=== PATIENT | male | born 1960 | race Two or more races ===

== ENCOUNTER → 2024-08-05 | Outpatient (CLI) | payer BC, SELFPAY ==
--- NOTE | 2024-08-05 | XR_ITS ---
Examination: Bilateral knees 2 views Right lateral knee left lateral knee 2 views TECHNIQUE: Bilateral AP knees standing single view Bilateral PA knees standing 30 degrees flexion single view Right lateral knee left lateral knee 2 views total 4 views Exam date and time: August 05, 2024 1525 hours INDICATIONS: Bilateral knee pain on the left side beginning one month ago on the right side beginning one year ago FINDINGS: Moderate osteopenia Severe narrowing [id number] medial joint space right knee Moderate osteoarthritis right patellofemoral joint Moderate to advanced narrowing medial joint space left knee Moderate osteoarthritis left patellofemoral joint Posterior left joint ossified bodies, the largest 15 mm IMPRESSION: Severe narrowing [id number] medial joint space right knee Moderate to advanced medial joint space left knee
== END | disposition home or self-care (01) ==
PROVIDERS: PCP Family Medicine; Referring Provider Family Medicine; Visit Provider Family Medicine
DX: M25.862 Other specified joint disorders, left knee (principal); M25.861 Other specified joint disorders, right knee
CPT/HCPCS: 73562

== ENCOUNTER 2024-08-15 08:08 | Outpatient (AMB) | payer BC, SELFPAY ==
--- NOTE | 2024-08-15 08:25 | ORTHONT_ITS ---
Vital signs 08/15/24 08:34 Height 1.88 m Height Method Stated Weight 134.859 kg Weight Measurement Method Standing Scale BMI 38.1 BP 152/92 H Blood Pressure Source Automatic Cuff Blood Pressure Location Left Upper Arm Position Sitting Respiration 19 Pulse 102 H Pulse Source Monitor Temp 97.8 F Temp Source Temporal Artery Scan Pulse Oximetry (%) 94 L Oxygen Delivery Method Room Air Med/Allergies Allergies & Medications Allergies methylprednisolone Allergy (Mild, Verified 08/15/24 08:35) Hives Medication Reconciliation acetaminophen 500 mg tablet (Tylenol Extra Strength) 500 mg PO QID PRN fever or pain #30 tabs 10/29/20 [Rx Confirmed 08/15/24] azithromycin 250 mg tablet See Rx Instructions PO .COMPLEX #6 tabs 10/29/20 [Rx Confirmed 08/15/24] Exam Exam Patient is in no acute distress and is cooperative with the examination today. Breathing is nonlabored. In no respiratory distress. Bilateral extremities were evaluated and demonstrates sensation intact to light touch. Palpable pedal pulses are present. No significant edema is present. Bilateral hips were examined. The patient has no pain with log roll of the hips. Internal rotation to 30 degrees and external rotation to 30 degrees is painless. Negative FADIR. The left knee was examined. The left knee is in varus alignment. Range of motion from 0-115 degrees. Knee is stable to varus and valgus as well as AP translation with <5mm. Patient has a negative McMurrays. There is no pain with patellofemoral compression and no crepitus noted. The knee is tender to palpation medially. The right knee was also examined. The right knee is in varus alignment. Range of motion from 0-120 degrees. Knee is stable to varus and valgus as well as AP translation with <5mm. Patient has a negative McMurrays. There is no pain with patellofemoral compression and no crepitus noted. The knee is tender to palpation medially. Patient has bilateral knee x-rays that demonstrate severe joint space narrowing medially and varus deformity Assessment and Plan Problem List (1) Degenerative arthritis of knee, bilateral: Status: Acute Plan: Patient is a 63-year-old male with bilateral knee pain and bilateral knee arthritis. We discussed nonoperative options including injections and anti- inflammatories. He is on oral diclofenac and we thus discussed that we can try bilateral knee injections. He had a funny reaction to methylprednisolone that was injected in his foot before and thus I would like to start 1 at a time. I discussed with him that if he gets a rash again that I would recommend an antihistamine. It went away completely with the last time and he had no systemic symptoms except for the rash for. Plan Recommend knee cortisone injection as patient would like to proceed with conservative treatment at this time. The risks and benefits of the procedure were reviewed with the patient and patient gave verbal consent to continue with the procedure. Procedure: performed by Dr. Osullivan Using sterile technique the left knee was thoroughly prepped with alcohol, and approximately 1 cc of Kenalog 40 mg/mL and 4 cc of 1% lidocaine was injected without resistance into the medial tibial femoral joint space. The patient tolerated the procedure. Office Procedures GNS Level of Care Nursing/Assessment Patient Status: Initial/New Patient Nursing Assessment/Reassesment: Medication Reconciliation, Update PMH in EMR and Vital Signs Coordination of Care: Complex Care and Chronic Disease 1-5, Education Complex Pt/Fam, Consent,records obtained, informed consent, 1 Ins Authorization, Results/Orders obtained and Staff clarify orders Special Needs: Language special needs New Patient Charge New Patient Point Assignment: 1109 New Patient Point Charge: SENIOR DOT NET DEVELOPER Level 3 ([id number]) Surgical Proc/IM SQ injection Major Surgical Procedure: Yes (KNEE INJECTION ) Medication Given Medication Given Medication Given: Yes Documented Dose Given: 4 Route: Infiitration Medication Given Medication Given Medication Given: Yes Documented Dose Given: 1 Route: Infiitration Office Meds Xylocaine 10 mg/mL (1 %) injection solution Performing Provider: Jon Osullivan MD Performing Location: [facility] Administered by: Jon Osullivan MD on 08/15/24 09:10 Dose Route Admin Location Dispensed Lot Number Expiration Date [facility] Tile Designer 40 mL Infiltration 40 mL [id number] 11/06/27 81421-157-90 [facility] triamcinolone acetonide 40 mg/mL suspension for injection Performing Provider: Jon Osullivan MD Performing Location: [facility] Administered by: Jon Osullivan MD on 08/15/24 09:10 Dose Route Admin Location Dispensed Lot Number Expiration Date [facility] Tile Designer 80 mg intra-articular 2 mL [id number] 12/05/25 7717-4380-81 [facility] PARENTER[facility] [place] Intake Visit Data Collection New Patient or Established: New Patient (never been to [facility]) Reason for Visit:: BL KNEE PAIN Seen by Clinical Staff ONLY (RN/MA): No Jewelry Sales Representative Required: Yes PCP or OBGYN visit in last 3 months: Yes Hx Now: No Do You Feel Safe at Home: Yes Authorities Contacted: N/A Questionairres Past Medical History Past Medical History Have you ever been diagnosed with any of the following: Cardiology Problems Congestive Heart Failure: No Respiratory Problems Chronic Obstructive Pulmonary Disease (COPD): No Genital/Urinary Problems Renal Disease: No Endocrine Problems Diabetes Mellitus Type 1: No Diabetes Mellitus Type 2: No Subjective Visit Visit for: new patient and knee Immunization / Flu Flu Vaccine in the Last 12 Months: Yes Flu Vaccine Exclusion Criteria: Already Received History of Present Illness Chief complaint: Bilateral knee pain Patient is a pleasant 63-year-old male with bilateral knee pain worse on the left. This been ongoing for approximately a year. The left is worse than the right and the pain is primarily in the medial aspect. He has tried oral diclofenac. He previously had a injection in his foot and had a rash. It went away with oral Benadryl. We discussed that we resume a similar type medication. We discussed the risks and benefits and he would like to try injection. We recommended an antihistamine should he get a rash again Pain Pain level (0-10): 10 Pain duration: ALL DAY Pain location: inside (medial) Pain quality: aching and burning Pain timing: night, increases with activity and stairs Associated signs & symptoms: none Ambulatory data Ambulatory device: none Treatments Improvement with previous injections: No Improvement with PT: No Improvement with NSAIDS: no Review of Systems Review of Systems: All systems negative unless otherwise noted in HPI.
[2024-08-15 08:34] VITALS: BP 152/92; PULSE 102; RESP 19; TEMP 36.6; O2SAT 94; BMI 38.1
== END 2024-08-15 08:38 | disposition home or self-care (01) ==
LOC: HODSRG 08:08
PROVIDERS: PCP Family Medicine; Referring Provider Family Medicine; Supervising Provider Orthopaedic Surgery Adult Reconstructive Orthopaedic Surgery; Visit Provider Orthopaedic Surgery Adult Reconstructive Orthopaedic Surgery
DX: M17.0 Bilateral primary osteoarthritis of knee (principal); M25.562 Pain in left knee; M25.561 Pain in right knee
CPT/HCPCS: 20610; 99203; J3301; J3490; G0463

== ENCOUNTER 2024-10-10 12:57 | Outpatient (AMB) | payer BC, SELFPAY ==
[2024-10-10 13:11] VITALS: BP 142/89; PULSE 80; RESP 18; TEMP 36.5; O2SAT 92; BMI 37.5
--- NOTE | 2024-10-10 13:11 | PD.ORTHCLVIS ---
Vital signs 10/10/24 13:11 Height 1.88 m Height Method Stated Weight 132.931 kg Weight Measurement Method Standing Scale BMI 37.5 BP 142/89 H Blood Pressure Source Automatic Cuff Blood Pressure Location Right Upper Arm Position Sitting Respiration 18 Pulse 80 Pulse Source Monitor Temp 97.7 F Temp Source Temporal Artery Scan Pulse Oximetry (%) 92 L Oxygen Delivery Method Room Air Med/Allergies Allergies & Medications Allergies methylprednisolone Allergy (Mild, Verified 10/10/24 13:12) Hives Medication Reconciliation acetaminophen 500 mg tablet (Tylenol Extra Strength) 500 mg PO QID PRN fever or pain #30 tabs 10/29/20 [Rx Confirmed 10/10/24] azithromycin 250 mg tablet See Rx Instructions PO .COMPLEX #6 tabs 10/29/20 [Rx Confirmed 10/10/24] Exam Exam Patient is in no acute distress and is cooperative with the examination today. Breathing is nonlabored. In no respiratory distress. Bilateral extremities were evaluated and demonstrates sensation intact to light touch. Palpable pedal pulses are present. No significant edema is present. Bilateral hips were examined. The patient has no pain with log roll of the hips. Internal rotation to 30 degrees and external rotation to 30 degrees is painless. Negative FADIR. The left knee was examined. The left knee is in varus alignment. Range of motion from 0-115 degrees. Knee is stable to varus and valgus as well as AP translation with <5mm. Patient has a negative McMurrays. There is no pain with patellofemoral compression and no crepitus noted. The knee is tender to palpation medially. The right knee was also examined. The right knee is in varus alignment. Range of motion from 0-120 degrees. Knee is stable to varus and valgus as well as AP translation with <5mm. Patient has a negative McMurrays. There is no pain with patellofemoral compression and no crepitus noted. The knee is tender to palpation medially. Patient has bilateral knee x-rays that demonstrate severe joint space narrowing medially and varus deformity Assessment and Plan Problem List (1) Degenerative arthritis of knee, bilateral: Status: Acute Plan: Patient is a 63-year-old male with bilateral knee pain and bilateral knee arthritis. We discussed nonoperative options including injections and anti-inflammatories. He did well with a left knee injection would like a right knee injection Plan Recommend knee cortisone injection as patient would like to proceed with conservative treatment at this time. The risks and benefits of the procedure were reviewed with the patient and patient gave verbal consent to continue with the procedure. Procedure: performed by Dr. Osullivan Using sterile technique the Right knee was thoroughly prepped with alcohol, and approximately 1 cc of Kenalog 40 mg/mL and 4 cc of 1% lidocaine was injected without resistance into the medial tibial femoral joint space. The patient tolerated the procedure. Advanced Care Planning Discussion Advance care planning discussed with:: patient Office Procedures GNS Level of Care Nursing/Assessment Patient Status: Established Patient Nursing Assessment/Reassesment: Medication Reconciliation, Update PMH in EMR and Vital Signs Coordination of Care: Complex Care and Chronic Disease 1-5, Consent,records obtained, informed consent, Education Simp Pt/Fam, Results/Orders obtained and Staff clarify orders Special Needs: Language special needs (CYPRIOT ) Established Patient Charge Established Patient Point Assignment: 90 Established Patient Point Charge: EP Level 3 (80-115) Surgical Proc/IM SQ injection Major Surgical Procedure: Yes (KNEE INJECTION) Medication Given Medication Given Medication Given: Yes Documented Dose Given: 4 Route: Infiitration Medication Given Medication Given Medication Given: Yes Documented Dose Given: 1 Route: Infiitration Office Meds Xylocaine 10 mg/mL (1 %) injection solution Performing Provider: Jon Osullivan MD Performing Location: [facility] Administered by: Jon Osullivan MD on 10/10/24 13:24 Dose Route Admin Location Dispensed Lot Number Expiration Date [facility] Wood Chopper 20 mL Infiltration 20 mL [id number] 01/06/28 83162-850-11 [facility] triamcinolone acetonide 40 mg/mL suspension for injection Performing Provider: Jon Osullivan MD Performing Location: [facility] Administered by: Jon Osullivan MD on 10/10/24 13:24 Dose Route Admin Location Dispensed Lot Number Expiration Date [facility] Wood Chopper 40 mg intra-articular KNEE 1 mL [id number] 05/07/26 1593-0531-49 [facility] [place] Intake Visit Data Collection New Patient or Established: Established Patient (seen at [facility] within 3 years) Reason for Visit:: RT KNEE INJECTION Seen by Clinical Staff ONLY (RN/MA): No Crop Quantitative Geneticist Required: Yes PCP or OBGYN visit in last 3 months: Yes Hx Now: No Do You Feel Safe at Home: Yes Authorities Contacted: N/A Questionairres Past Medical History Past Medical History Have you ever been diagnosed with any of the following: Cardiology Problems Congestive Heart Failure: No Respiratory Problems Chronic Obstructive Pulmonary Disease (COPD): No Smoking: No Smoking Cessation Counseling: No Smoking Exposure: No Genital/Urinary Problems Renal Disease: No Endocrine Problems Diabetes Mellitus Type 1: No Diabetes Mellitus Type 2: No Subjective Visit Visit for: follow up visit and knee (RT KNEE ) Immunization / Flu Flu Vaccine in the Last 12 Months: Yes Flu Vaccine Exclusion Criteria: Already Received History of Present Illness Chief complaint: Bilateral knee pain Patient is a pleasant 63-year-old male with bilateral knee pain worse on the left. This been ongoing for approximately a year. The left is worse than the right and the pain is primarily in the medial aspect. He has tried oral diclofenac. He previously had a injection in his foot and had a rash. It went away with oral Benadryl. We discussed that we resume a similar type medication. He had an injection on the left and had no allergic reaction to it. He would not like An injection on the right Personal History Red flag PMH: none Pain Pain level (0-10): 4 Pain duration: +3 YEARS Pain location: anterior (RT KNEE ) Pain quality: sharp, dull and shocking Pain timing: increases with activity Associated signs & symptoms: none Ambulatory data Ambulatory device: none Walking distance (minutes): 5 Treatments Number of previous injections: 1 (LEFT KNEE ) Improvement with previous injections: Yes Number of Physical Therapy sessions: 0 Improvement with PT: No Improvement with NSAIDS: n/a Review of Systems Review of Systems: All systems negative unless otherwise noted in HPI.
== END 2024-10-10 13:23 | disposition home or self-care (01) ==
LOC: HODSRG 12:57
PROVIDERS: PCP Family Medicine; Referring Provider Family Medicine; Supervising Provider Orthopaedic Surgery Adult Reconstructive Orthopaedic Surgery; Visit Provider Orthopaedic Surgery Adult Reconstructive Orthopaedic Surgery
DX: M17.0 Bilateral primary osteoarthritis of knee (principal); M25.561 Pain in right knee; M25.562 Pain in left knee
CPT/HCPCS: 20610; 99212; 99213; J3301; J3490; G0463

== ENCOUNTER → 2024-12-31 | Outpatient (CLI) | payer BC, SELFPAY ==
--- NOTE | 2024-12-31 10:10 | XR_ITS ---
EXAMINATION: Cervical spine, 5 views Technique: Cervical spine AP, AP odontoid, lateral, bilateral obliques, 5 views Exam date and time: December 31, 2024 1038 hours INDICATIONS: Left-sided neck pain beginning 2 months ago. FINDINGS: Prominent osteopenia No cervical fracture Straightening normal cervical lordosis Moderate degenerative disc disease C5-C6 with moderate bilateral neural foraminal stenosis Intact odontoid IMPRESSION: Moderate degenerative disc disease C5-C6
== END | disposition home or self-care (01) ==
LOC: CDIM 09:53
PROVIDERS: PCP Family Medicine; Referring Provider Family Medicine; Visit Provider Family Medicine
DX: M50.322 Other cervical disc degeneration at C5-C6 level (principal)
CPT/HCPCS: 72050

== ENCOUNTER 2025-01-13 12:46 | Outpatient (AMB) | payer BC, SELFPAY ==
[2025-01-13 13:05] VITALS: BP 155/94; PULSE 98; RESP 18; TEMP 36.9; O2SAT 95; BMI 36.6
--- NOTE | 2025-01-13 13:05 | PD.ORTHCLVIS ---
Vital signs 01/13/25 13:05 Height 1.88 m Height Method Stated Weight 129.529 kg Weight Measurement Method Standing Scale BMI 36.6 BP 155/94 H Blood Pressure Source Automatic Cuff Blood Pressure Location Right Upper Arm Position Sitting Respiration 18 Pulse 98 Pulse Source Monitor Temp 98.4 F Temp Source Temporal Artery Scan Pulse Oximetry (%) 95 Oxygen Delivery Method Room Air Med/Allergies Allergies & Medications Allergies methylprednisolone Allergy (Mild, Verified 01/13/25 13:06) Hives Medication Reconciliation acetaminophen 500 mg tablet (Tylenol Extra Strength) 500 mg PO QID PRN fever or pain #30 tabs 10/29/20 [Rx Confirmed 01/13/25] Exam Exam Patient is in no acute distress and is cooperative with the examination today. Breathing is nonlabored. In no respiratory distress. Bilateral extremities were evaluated and demonstrates sensation intact to light touch. Palpable pedal pulses are present. No significant edema is present. Bilateral hips were examined. The patient has no pain with log roll of the hips. Internal rotation to 30 degrees and external rotation to 30 degrees is painless. Negative FADIR. The left knee was examined. The left knee is in varus alignment. Range of motion from 0-115 degrees. Knee is stable to varus and valgus as well as AP translation with <5mm. Patient has a negative McMurrays. There is no pain with patellofemoral compression and no crepitus noted. The knee is tender to palpation medially. The right knee was also examined. The right knee is in varus alignment. Range of motion from 0-120 degrees. Knee is stable to varus and valgus as well as AP translation with <5mm. Patient has a negative McMurrays. There is no pain with patellofemoral compression and no crepitus noted. The knee is tender to palpation medially. Patient has bilateral knee x-rays that demonstrate severe joint space narrowing medially and varus deformity Assessment and Plan Problem List (1) Degenerative arthritis of knee, bilateral: Status: Acute Plan: Patient is a 63-year-old male with bilateral knee pain and bilateral knee arthritis. We discussed nonoperative options including injections and anti-inflammatories. He wants bilateral knee injections today Plan Recommend knee cortisone injections as patient would like to proceed with conservative treatment at this time. The risks and benefits of the procedure were reviewed with the patient and patient gave verbal consent to continue with the procedure. Procedure: performed by Dr. Osullivan Using sterile technique the Bilateral knees were thoroughly prepped with alcohol, and approximately 1 cc of Kenalog 40 mg/mL and 4 cc of 1% lidocaine was injected into each knee without resistance into the medial tibial femoral joint space. The patient tolerated the procedure. Advanced Care Planning Discussion Advance care planning discussed with:: patient Office Procedures GNS Level of Care Nursing/Assessment Patient Status: Established Patient Nursing Assessment/Reassesment: Medication Reconciliation, Update PMH in EMR and Vital Signs Coordination of Care: Complex Care and Chronic Disease 1-5, Education Complex Pt/Fam, Consent,records obtained, informed consent, Lab and Imaging orders, Results/Orders obtained and Staff clarify orders Special Needs: Language special needs Established Patient Charge Established Patient Point Assignment: 110 Established Patient Point Charge: EP Level 3 (80-115) Surgical Proc/IM SQ injection Major Surgical Procedure: Yes (BILATERAL KNEE INJECTIONS ) Medication Given Medication Given Medication Given: Yes Documented Dose Given: 2 Route: Infiitration Medication Given Medication Given Medication Given: Yes Office Meds Xylocaine 10 mg/mL (1 %) injection solution Performing Provider: Jon Osullivan MD Performing Location: [facility] Administered by: Jon Osullivan MD on 01/13/25 13:42 Dose Route Admin Location Dispensed Lot Number Expiration Date [facility] Technical Photographer 40 mL Infiltration 40 mL [id number] 04/07/28 98831-217-34 [facility] triamcinolone acetonide 40 mg/mL suspension for injection Performing Provider: Jon Osullivan MD Performing Location: [facility] Administered by: Jeni Llamas on 01/13/25 13:42 Dose Route Admin Location Dispensed Lot Number Expiration Date [facility] Technical Photographer 80 mg intra-articular 2 mL [id number] 08/07/26 18048-580-57 OLIV[facility] STOLL [place] Intake Visit Data Collection New Patient or Established: Established Patient (seen at [facility] within 3 years) Reason for Visit:: BILATERAL KNEE INJECTIONS Seen by Clinical Staff ONLY (RN/MA): No Verbal consent obtained for Telemed visit?: Yes PCP or OBGYN visit in last 3 months: Yes Hx Now: No Do You Feel Safe at Home: Yes Questionairres Past Medical History Past Medical History Have you ever been diagnosed with any of the following: Cardiology Problems Congestive Heart Failure: No Respiratory Problems Chronic Obstructive Pulmonary Disease (COPD): No Smoking: No Smoking Cessation Counseling: No Smoking Exposure: No Genital/Urinary Problems Renal Disease: No Endocrine Problems Diabetes Mellitus Type 1: No Diabetes Mellitus Type 2: No Subjective Visit Visit for: follow up visit and knee Immunization / Flu Flu Vaccine in the Last 12 Months: No Flu Vaccine Exclusion Criteria: No Exclusion Criteria History of Present Illness Chief complaint: BILATERAL KNEE INJECTIONS Patient is a pleasant 63-year-old male with bilateral knee pain worse on the left. This been ongoing for approximately a year. The left is worse than the right and the pain is primarily in the medial aspect. He has tried oral diclofenac. He previously had a injection in his foot and had a rash. It went away with oral Benadryl. He did well with his last knee injections and would like more ones today Personal History Occupation: [employer] Red flag PMH: BMI BMI Counceling provided: Yes Pain Pain level (0-10): 6 Pain duration: COMES AND GOES Pain location: anterior and posterior Pain quality: sharp, dull and aching Pain timing: increases with activity Associated signs & symptoms: stiffness Ambulatory data Ambulatory device: none Walking distance (minutes): 5 Treatments Number of previous injections: 1 (LEFT KNEE ) Improvement with previous injections: Yes Number of Physical Therapy sessions: 0 Improvement with PT: No Improvement with NSAIDS: no Review of Systems Review of Systems: All systems negative unless otherwise noted in HPI.
== END 2025-01-13 13:32 | disposition home or self-care (01) ==
LOC: HODSRG 12:46
PROVIDERS: PCP Family Medicine; Referring Provider Family Medicine; Supervising Provider Orthopaedic Surgery Adult Reconstructive Orthopaedic Surgery; Visit Provider Orthopaedic Surgery Adult Reconstructive Orthopaedic Surgery
DX: M17.0 Bilateral primary osteoarthritis of knee (principal); M25.562 Pain in left knee; M25.561 Pain in right knee
CPT/HCPCS: 20610; 99213; J3301; J3490; G0463

== ENCOUNTER 2025-04-28 09:32 | Outpatient (AMB) | payer BC, SELFPAY ==
--- NOTE | 2025-04-28 10:11 | ORTHONT_ITS ---
Vital signs 04/28/25 10:14 Height 1.88 m Height Method Stated Weight 130.209 kg Weight Measurement Method Standing Scale BMI 36.8 BP 147/94 H Blood Pressure Source Automatic Cuff Blood Pressure Location Left Upper Arm Position Sitting Respiration 18 Pulse 110 H Pulse Source Monitor Temp 97.6 F Temp Source Temporal Artery Scan Pulse Oximetry (%) 94 L Oxygen Delivery Method Room Air Med/Allergies Allergies & Medications Allergies methylprednisolone Allergy (Mild, Verified 04/28/25 10:15) Hives Medication Reconciliation acetaminophen 500 mg tablet (Tylenol Extra Strength) 500 mg PO QID PRN fever or pain #30 tabs 10/29/20 [Rx Confirmed 04/28/25] Exam Exam Patient is in no acute distress and is cooperative with the examination today. Breathing is nonlabored. In no respiratory distress. Bilateral extremities were evaluated and demonstrates sensation intact to light touch. Palpable pedal pulses are present. No significant edema is present. Bilateral hips were examined. The patient has no pain with log roll of the hips. Internal rotation to 30 degrees and external rotation to 30 degrees is painless. Negative FADIR. The left knee was examined. The left knee is in varus alignment. Range of motion from 0-115 degrees. Knee is stable to varus and valgus as well as AP translation with <5mm. Patient has a negative McMurrays. There is no pain with patellofemoral compression and no crepitus noted. The knee is tender to palpation medially. The right knee was also examined. The right knee is in varus alignment. Range of motion from 0-120 degrees. Knee is stable to varus and valgus as well as AP translation with <5mm. Patient has a negative McMurrays. There is no pain with patellofemoral compression and no crepitus noted. The knee is tender to palpation medially. Patient has bilateral knee x-rays that demonstrate severe joint space narrowing medially and varus deformity Assessment and Plan Problem List (1) Degenerative arthritis of knee, bilateral: Status: Acute Plan: Patient is a 63-year-old male with bilateral knee pain and bilateral knee arthritis. We discussed nonoperative options including injections and anti- inflammatories. He wants bilateral knee injections today Plan Recommend knee cortisone injection as patient would like to proceed with conservative treatment at this time. The risks and benefits of the procedure were reviewed with the patient and patient gave verbal consent to continue with the procedure. Procedure: performed by Dr. Osullivan Using sterile technique the Right knee was thoroughly prepped with alcohol, and approximately 1 cc of Depo-Medrol 80mg/mL and 4 cc of 0.2% ropivacaine was injected without resistance into the medial tibial femoral joint space. The patient tolerated the procedure. Recommend knee cortisone injection as patient would like to proceed with conservative treatment at this time. The risks and benefits of the procedure were reviewed with the patient and patient gave verbal consent to continue with the procedure. Procedure: performed by Dr. Osullivan Using sterile technique the left knee was thoroughly prepped with alcohol, and approximately 1 cc of Depo-Medrol 80mg/mL and 4 cc of 0.2% ropivacaine was injected without resistance into the medial tibial femoral joint space. The patient tolerated the procedure. Advanced Care Planning Discussion Advance care planning discussed with:: patient Office Procedures GNS Level of Care Nursing/Assessment Patient Status: Established Patient Nursing Assessment/Reassesment: Medication Reconciliation, Update PMH in EMR and Vital Signs Coordination of Care: Complex Care and Chronic Disease 1-5, Education Complex Pt/Fam, Consent,records obtained, informed consent, Results/Orders obtained and Staff clarify orders Special Needs: Language special needs Established Patient Charge Established Patient Point Assignment: 95 Established Patient Point Charge: EP Level 3 (80-115) Surgical Proc/IM SQ injection Minor Surgical Procedure: Yes (BILATERAL KNEE INJECTION) Medication Given Medication Given Medication Given: Yes Documented Dose Given: 1 Route: Infiitration Medication Given Medication Given Medication Given: Yes Documented Dose Given: 1 Route: Infiitration Medication Given Medication Given Medication Given: Yes Documented Dose Given: 4 Route: Infiitration Medication Given Medication Given Medication Given: Yes Documented Dose Given: 4 Route: Infiitration Office Meds methylprednisolone acetate 80 mg/mL suspension for injection Performing Provider: Jon Osullivan MD Performing Location: [facility] Administered by: Jon Osullivan MD on 04/28/25 11:43 Dose Route Admin Location Dispensed Lot Number Expiration Date Pack age [facility] [place] [employer] 80 mg intra-articular 1 mL methylprednisolone acetate 80 mg/mL suspension for injection Performing Provider: Jon Osullivan MD Performing Location: [facility] Administered by: Jon Osullivan MD on 04/28/25 11:43 Dose Route Admin Location Dispensed Lot Number Expiration Date Pack age [place] [employer] Employment Legal Assistant 80 mg intra-articular 1 mL ropivacaine (PF) 2 mg/mL (0.2 %) injection solution Performing Provider: Jon Osullivan MD Performing Location: [facility] Administered by: Jon Osullivan MD on 04/28/25 11:43 Dose Route Admin Location Dispensed Lot Number Expiration Date Pack age NDC [employer] Employment Legal Assistant 20 mL Infiltration 20 mL ropivacaine (PF) 2 mg/mL (0.2 %) injection solution Performing Provider: Jon Osullivan MD Performing Location: [facility] Administered by: Jon Osullivan MD on 04/28/25 11:43 Dose Route Admin Location Dispensed Lot Number Expiration Date Pack age [facility] [place] [employer] Employment Legal Assistant 20 mL Infiltration 20 mL MA Intake Visit Data Collection New Patient or Established: Established Patient (seen at [facility] within 3 years) Reason for Visit:: BILATERAL KNEE INJECTIONS Seen by Clinical Staff ONLY (RN/MA): No Verbal consent obtained for Telemed visit?: Yes PCP or OBGYN visit in last 3 months: Yes Hx Now: No Do You Feel Safe at Home: Yes Questionairres Past Medical History Past Medical History Have you ever been diagnosed with any of the following: Cardiology Problems Congestive Heart Failure: No Respiratory Problems Chronic Obstructive Pulmonary Disease (COPD): No Smoking: No Smoking Cessation Counseling: No Smoking Exposure: No Genital/Urinary Problems Renal Disease: No Endocrine Problems Diabetes Mellitus Type 1: No Diabetes Mellitus Type 2: No Subjective Visit Visit for: follow up visit and knee Immunization / Flu Flu Vaccine in the Last 12 Months: No Flu Vaccine Exclusion Criteria: No Exclusion Criteria History of Present Illness Chief complaint: BILATERAL KNEE INJECTIONS Patient is a pleasant 64-year-old male with bilateral knee pain worse on the left. This been ongoing for approximately a year. The left is worse than the right and the pain is primarily in the medial aspect. He has tried oral diclofenac. He previously had a injection in his foot and had a rash. It went away with oral Benadryl. He did well with his last knee injections and would like more ones today Personal History Occupation: [employer] PMH: BMI BMI Counceling provided: Yes Pain Pain level (0-10): 6 Pain duration: COMES AND GOES Pain location: anterior and posterior Pain quality: sharp, dull and aching Pain timing: increases with activity Associated signs & symptoms: stiffness Ambulatory data Ambulatory device: none Walking distance (minutes): 5 Treatments Number of previous injections: 1 (LEFT KNEE ) Improvement with previous injections: Yes Number of Physical Therapy sessions: 0 Improvement with PT: No Improvement with NSAIDS: no Review of Systems Review of Systems: All systems negative unless otherwise noted in HPI.
[2025-04-28 10:14] VITALS: BP 147/94; PULSE 110; RESP 18; TEMP 36.4; O2SAT 94; BMI 36.8
== END 2025-04-28 10:28 | disposition home or self-care (01) ==
LOC: HODSRG 09:32
PROVIDERS: PCP Family Medicine; Referring Provider Family Medicine; Supervising Provider Orthopaedic Surgery Adult Reconstructive Orthopaedic Surgery; Visit Provider Orthopaedic Surgery Adult Reconstructive Orthopaedic Surgery
DX: M25.562 Pain in left knee (principal); M25.561 Pain in right knee; M17.0 Bilateral primary osteoarthritis of knee
CPT/HCPCS: 20610; 99213; J1010; J2795; G0463